=== PATIENT | female | born 1985 | race Caucasian/White ===

== ENCOUNTER 2017-02-13 09:21 | Emergency (ER) | payer BC, OTHER ==
[2017-02-13 09:21] VITALS: BMI 30.2
[2017-02-13 09:35] VITALS: BP 115/60; PULSE 81; RESP 20; TEMP 98.8; O2SAT 100
--- NOTE | 2017-02-13 10:24 | C.PDOC ---
History Of Present Illness <Charito Sam - Last Filed: 02/13/17 10:51> <Donna Martinez - Last Filed: 02/13/17 11:10> 31 year old female with PMhx of bipolar d/o presents with left 4th toe pain x 1 day. Patient dropped a glass water pitcher on her toe last night. She applied an ice pack to it immediately. This morning the patient states that her toe became swollen and purple. She rates the pain 10/10 and has difficulty bearing weight on the ball of her foot due to the pain. Pain does not radiate and stays localized in her toe. Denies numbness and tingling. All other ROS negative. (JuanDonna) <Charito Sam - Last Filed: 02/13/17 10:51> History Per: Patient History/Exam Limitations: no limitations Onset/Duration Of Symptoms: Hrs Current Symptoms Are (Timing): Worse Severity: Severe Pain Scale Rating Of: 10 Recent travel outside of the [place]: No - Ankle/Foot Description Of Injury: Struck With Object Currently Unable To: Bear Weight Alleviating Factor(s): Ice Therapy <Donna Martinez - Last Filed: 02/13/17 11:10> Time Seen by Provider: 02/13/17 10:23 Chief Complaint (Nursing): Lower Extremity Problem/Injury Past Medical History - Medical History PMH: Bipolar Disorder, Migraine Denies: Chronic Kidney Disease Other Surgeries: Bilateral tubal ligation Family History: States: Unknown Family Hx - Social History Hx Tobacco Use: No Hx Alcohol Use: Yes (SOCIALLY) Hx Substance Use: No - Immunization History Hx Influenza Vaccination: No Hx Pneumococcal Vaccination: No <Donna Martinez - Last Filed: 02/13/17 11:10> Vital Signs: Last Vital Signs Temp 98.8 F 02/13/17 09:32 Pulse 81 02/13/17 09:32 Resp 20 02/13/17 09:32 BP 115/60 02/13/17 09:32 Pulse Ox 100 02/13/17 11:09 - [facility] Procedures APPLICATION OF SPLINT (06/15/15) BILAT ENDOS OCC TUBE NEC (04/09/15) Review Of Systems Except As Marked, All Systems Reviewed And Found Negative. Musculoskeletal: Positive for: Foot Pain (left 4th toe pain) Neurological: Negative for: Weakness, Numbness <Donna Martinez - Last Filed: 02/13/17 11:10> Physical Exam - Physical Exam Appears: Well, Non-toxic, No Acute Distress Skin: Warm, Dry, Ecchymosis (L 4th toe) Head: Atraumatic, Normacephalic Eye(s): bilateral: Normal Inspection, EOMI Cardiovascular: Rhythm Regular, No Rhythm Irregular, No Murmur Respiratory: Normal Breath Sounds, No Wheezing Gastrointestinal/Abdominal: Normal Exam, No Tenderness Extremity: Normal ROM, Tenderness (L 4th toe), No Pedal Edema, No Calf Tenderness, Capillary Refill, Swelling (swelling of L 4th toe) Extremity: Left: Unable To Bear Weight (foot ), Other (Left subungual hematoma less than 50% of surface area), Bilateral: No Pedal Edema Pulses: Left Dorsalis Pedis: Normal, Right Dorsalis Pedis: Normal Neurological/Psych: Oriented x3, Normal Speech, Normal Cognition Pain Response: Withdraws With Pain <Donna Martinez - Last Filed: 02/13/17 11:10> ED Course And Treatment O2 Sat by Pulse Oximetry: 100 <JuanDonna - Last Filed: 02/13/17 11:10> Supervising Attending Note - Supervising Attending Note Comment: RESIDENT - Attestation: I have personally seen and examined this patient.: Yes I have fully participated in the care of the patient.: Yes I have reviewed all pertinent clinical information, including history, physical exam and plan: Yes <Charito Sam - Last Filed: 02/13/17 10:51> <Donna Martinez - Last Filed: 02/13/17 11:10> - Notes: Notes:: TRAUMA LAST NIGHT L 4TH TOE. +SWELLING. EXAM ABOVE (Charito Sam) Disposition Counseled Patient/Family Regarding: Studies Performed, Diagnosis, Need For Followup, Rx Given - Disposition Disposition Time: 10:46 <Charito Sam - Last Filed: 02/13/17 10:51> Discussed With : Charito Sam Doctor Will See Patient In The: Office Counseled Patient/Family Regarding: Need For Followup - Disposition Disposition Time: 11:06 - POA Present On Arrival: Falls Or Trauma <Donna Martinez - Last Filed: 02/13/17 11:10> - Disposition Referrals: Les Rendon MD [Non-Staff] - Disposition: HOME/ ROUTINE Condition: IMPROVED Additional Instructions: Follow up with PMD within 7 days. Keep toe in ro-splint and apply ice to area every 2 hours. Patient advised to keep foot elevated and avoid ambulating too much. 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 Take OTC Tylenol every 6 hours for pain if needed. Instructions explained to the patient who understands. She may return to the ED if she experiences worsening of her symptoms of has any other concerns. Prescriptions: Naproxen 500 mg PO BID #30 tab Instructions: Toe Fracture (ED), Subungual Hematoma (ED) Forms: General Discharge Instructions, Work Excuse - Clinical Impression Clinical Impression: Toe fracture, Subungual hematoma Orthopedic Care Application Of:: Toe-ro tape (APPLIED BY RESIDENT SUPERVISED BY ME) <Charito Sam - Last Filed: 02/13/17 10:51>
--- NOTE | 2017-02-13 15:20 | RAD ---
PROCEDURE: HISTORY: trauma COMPARISON: None TECHNIQUE: Three views FINDINGS: A distal 4th phalangeal comminuted fracture with minimal 1 mm displacement of the fracture fragments is present. No intra-articular extension appreciated. No dislocation IMPRESSION: Comminuted fracture 4th digit as above
== END 2017-02-13 11:06 | disposition home or self-care (01) ==
LOC: C.ER 09:21
DX: S92.592A Other fracture of left lesser toe(s), initial encounter for closed fracture (principal); S90.222A Contusion of left lesser toe(s) with damage to nail, initial encounter; W22.8XXA Striking against or struck by other objects, initial encounter